=== PATIENT | female | born 1950 | race Caucasian/White ===

== ENCOUNTER → 2016-09-03 | Outpatient (CLI) | payer OTHER | LOC: FIMAGING 08:27 | PROVIDERS: ATTEND Internal Medicine | DX: R59.0 Localized enlarged lymph nodes (principal) ==

== ENCOUNTER → 2016-09-14 | Outpatient (CLI) | payer OTHER ==
[~2016-09-14] MED LIST: IOPAMIDOL (ISOVUE-300) 100 ML BTL IV ONE
[2016-09-14 12:19] LABS: CREATININE 0.8 mg/dL (0.6-1.0); GLOMERULAR FILTRATION RATE > 60
== END ==
LOC: FIMAGING 11:37
PROVIDERS: ATTEND Internal Medicine
DX: R59.0 Localized enlarged lymph nodes (principal); K59.00 Constipation, unspecified
CPT/HCPCS: 71260; 74177; Q9967

== ENCOUNTER 2016-10-21 09:54 | Day surgery (SDC) | payer OTHER ==
[2016-10-15 15:06] LABS: ANION GAP 10 mEq/L (8-16); CALCIUM 9.5 mg/dL (8.5-10.4); CARBON DIOXIDE 29 mEq/l (22-31); CHLORIDE 96 mEq/L (97-110); CREATININE 0.8 mg/dL (0.6-1.0); GLOMERULAR FILTRATION RATE > 60; GLUCOSE 73 mg/dL (70-100); POTASSIUM 3.3 mEq/L (3.5-5.2); SODIUM 135 mEq/L (134-144)
[~2016-10-21 09:54] MED LIST changes: +BUPIVACAINE 0.25% 30 ML SDV ONE; -IOPAMIDOL (ISOVUE-300) 100 ML BTL IV ONE
[2016-10-21] MEDS ORDERED: MIDAZOLAM 2 MG/2 ML VIAL ONE (11:12)
[2016-10-21] MEDS ORDERED: LR 1,000 ML IV ONE (11:16)
[2016-10-21] MEDS ORDERED: LIDOCAINE 1% 5 ML SDV ID PRN (11:16)
[2016-10-21] MEDS ORDERED: LIDOCAINE 2% 5 ML SDV ONE (11:29)
[2016-10-21] MEDS ORDERED: fentaNYL 100 MCG/2 ML INJ ONE (11:29)
[2016-10-21] MEDS ORDERED: PROPOFOL 200 MG/20 ML VIAL ONE (11:29)
[2016-10-21] MEDS ORDERED: ONDANSETRON 4 MG/2 ML VIAL ONE (11:30)
[2016-10-21] MEDS ORDERED: LIDOCAINE 1% 30 ML SDV ONE (11:33)
[2016-10-21] MEDS ORDERED: epHEDrine SULFATE 10 MG/ML SYR ONE (11:54)
[2016-10-21] MEDS ORDERED: PHENYLEPHRINE HCL 100 MCG/ML SYR ONE (12:08)
--- NOTE | 2016-10-21 17:38 | GOP ---
[f rep st] OPERATIVE REPORT DATE OF OPERATION: 10/21/2016 SURGEON: Vega Yen MD ANESTHESIA: Laryngeal mask anesthesia per Dr. Riddle. PREOPERATIVE DIAGNOSIS: Bilateral axillary lymphadenopathy. POSTOPERATIVE DIAGNOSIS: PROCEDURE PERFORMED: Right axillary lymph node excision. FINDINGS: The patient had 2-3 medium-sized nodes clumped together in the right axilla. These were sent fresh. ESTIMATED BLOOD LOSS: 20 cc. INDICATIONS: This 66-year-old female with lymphadenopathy. The largest node was felt to be on the right side. Risks and benefits of the procedure were discussed with the patient and her family, the ir questions were answered, and they wished to proceed. DESCRIPTION OF PROCEDURE: The patient was in the supine position. After induction of adequate cheli ngeal mask anesthesia, the patient was prepped and draped in the standard surgical fashion. 1% lido zoila and 0.5% Marcaine were injected throughout the right axilla. A transverse incision was made w ith a #10 blade and carried down to subcutaneous tissues with Bovie cautery and blunt dissection. T he axillary fascia was bluntly opened. The axillary fat was then identified and carefully palpated. The mass that was palpable on exam was identified and gradually dissected using blunt dissection a nd cautery. Small lymphatics were clipped and then divided. The palpable mass was found to be appr oximately 3 lymph nodes of 8 mm size. These were sent fresh for permanent section. The area was th en palpated and no other lesions were identified. Good hemostasis was noted. The subcutaneous tiss ue was approximated in layers using 3-0 Vicryl in interrupted fashion. Skin was closed with 4-0 Mon ocryl in a subcuticular stitch. Wound was sterilely dressed and the patient was extubated and taken to PACU in stable condition. COMPLICATIONS: None. DRAINS: None. /[id number]/MODL
[2016-10-22 16:22] LABS: FINAL DIAGNOSIS See Comments; MICROSCOPIC DESCRIPTION See Comments
== END 2016-10-21 14:35 | disposition home or self-care (01) ==
LOC: FSGY 09:54
PROVIDERS: ATTEND Surgery
PROC: 07B50ZX Excision of Right Axillary Lymphatic, Open Approach, Diagnostic (ICD-10-PCS; principal; 2016-10-21 11:30)
DX: R59.0 Localized enlarged lymph nodes (principal); I10 Essential (primary) hypertension; E03.9 Hypothyroidism, unspecified; E78.5 Hyperlipidemia, unspecified; F32.9 Major depressive disorder, single episode, unspecified
CPT/HCPCS: 88184-90; 88185-91; J2250; J2370; J2405; J2704; J3010

== ENCOUNTER → 2016-12-29 | Outpatient (CLI) | payer OTHER | LOC: BMCIMAGING 12:31 | PROVIDERS: ATTEND Nurse Practitioner Adult Health | DX: Z12.31 Encounter for screening mammogram for malignant neoplasm of breast (principal) | CPT/HCPCS: G0202 ==

== ENCOUNTER → 2018-01-25 | Outpatient (CLI) | payer OTHER | DX: Z12.31 Encounter for screening mammogram for malignant neoplasm of breast (principal) ==

== ENCOUNTER → 2018-04-25 | Outpatient (CLI) | payer OTHER | LOC: BMCIMAGING 10:46 | PROVIDERS: ATTEND Nurse Practitioner Adult Health | DX: Z13.820 Encounter for screening for osteoporosis (principal); M85.89 Other specified disorders of bone density and structure, multiple sites; Z82.62 Family history of osteoporosis ==

== ENCOUNTER → 2018-05-02 | Outpatient (CLI) | payer OTHER | LOC: BMCIMAGING 10:34 | PROVIDERS: ATTEND Podiatrist Foot & Ankle Surgery | DX: M79.671 Pain in right foot (principal) ==